=== PATIENT | male | born 1940 ===

== ENCOUNTER 2021-01-22 10:36 | Outpatient (CLI) | payer MEDICARE, MEDICAID, SELFPAY | END 2021-01-22 10:37 | disposition home or self-care (01) | LOC: ANHBWCAUD 10:40 | PROVIDERS: PCP Nurse Practitioner Family; Visit Provider Nurse Practitioner Family | DX: H91.93 Unspecified hearing loss, bilateral (principal) | CPT/HCPCS: 99199 ==